=== PATIENT | female | born 1935 | race Caucasian/White ===

== ENCOUNTER 2017-12-01 10:46 | Outpatient (CLI) | payer MEDICARE | END 2017-12-01 10:47 | disposition home or self-care (01) | LOC: BICMAMMO 10:46 | PROVIDERS: ATTEND Obstetrics & Gynecology | DX: Z12.31 Encounter for screening mammogram for malignant neoplasm of breast (principal) | CPT/HCPCS: 77063; 77067 ==

== ENCOUNTER 2020-07-16 13:01 | Outpatient (CLI) | payer MEDICARE ==
--- NOTE | 2020-07-16 13:54 | RAD ---
PA AND LATERAL CHEST: 07/16/20 HISTORY: Dyspnea. COMPARISON: 04/23/13 exam. Heart size is within normal limits. There are atherosclerotic change of the aorta. Chronic appearing interstitial lung changes are seen. Bones are demineralized. There is compression changes of two of t he lower thoracic vertebral bodies, age indeterminate. Hiatal hernia is present. IMPRESSION: 1. Chronic lung change. 2. Age indeterminate compression changes of two of the lower thoracic vertebral bodies. 3. Hiatal hernia. POS: [facility]
== END 2020-07-16 13:02 | disposition home or self-care (01) ==
LOC: BICRAD 13:01
PROVIDERS: ATTEND Internal Medicine Pulmonary Disease
DX: R06.00 Dyspnea, unspecified (principal); K44.9 Diaphragmatic hernia without obstruction or gangrene
CPT/HCPCS: 71046

== ENCOUNTER 2020-10-06 13:12 | Outpatient (CLI) | payer MEDICARE | END 2020-10-06 13:13 | disposition home or self-care (01) | LOC: BICULT 13:12 | PROVIDERS: ATTEND Urology | DX: N35.82 Other urethral stricture, female (principal); R33.9 Retention of urine, unspecified; N28.9 Disorder of kidney and ureter, unspecified | CPT/HCPCS: 76770 ==

== ENCOUNTER 2021-08-05 10:30 | Outpatient (CLI) | payer MEDICARE ==
[~2021-08-05 10:30] MED LIST: Iopamidol-370 76% 500 ML 1 ML ONE
== END 2021-08-05 10:31 | disposition home or self-care (01) ==
LOC: BICCT 10:30
PROVIDERS: ATTEND Internal Medicine Critical Care Medicine
DX: R91.1 Solitary pulmonary nodule (principal); I25.10 Atherosclerotic heart disease of native coronary artery without angina pectoris; I70.0 Atherosclerosis of aorta; I71.4 Abdominal aortic aneurysm, without rupture; J47.9 Bronchiectasis, uncomplicated; R91.8 Other nonspecific abnormal finding of lung field
CPT/HCPCS: 71260; 82565

== ENCOUNTER 2021-10-23 20:29 | Inpatient (IN) | payer OTHER, MEDICARE ==
[2021-10-23] MEDS ORDERED: Fentanyl 100 MCG/2 ML VIAL ONE (21:05)
[2021-10-23 21:22] LABS: #Eosinphils 0.1 thou/uL (0.0-0.7); #Lymphocytes 1.1 thou/uL (1.20-3.40); #Monocytes 0.5 thou/uL (0.11-0.59); #Neutrophils 7.2 thou/uL (1.40-6.50); %Basophils 0.2 % (0.0-1.0); %Eosinophils 0.8 % (0.0-10.0); %Lymphocytes 12.2 % (21.0-51.0); %Monocytes 5.4 % (0.0-10.0); %Neutrophils 81.4 % (42.0-75.0); Hemoglobin 12.9 g/dL (12.0-16.0); Mean Corpuscular Hemoglobin 33.7 pg (27.0-31.0); Mean Corpuscular Volume 99.1 fL (78.0-98.0); Mean Platelet Volume 7.2 fL (7.4-10.4); Platelet Count 184 thou/uL (130-400); Red Blood Cell (RBC) Count 3.82 mill/uL (4.20-5.40); White Blood Cell (WBC) Count 8.8 thou/uL (4.8-10.8)
[2021-10-23 21:24] LABS: Prothrombin Time 13.7 sec (12.0-14.7)
[2021-10-23 21:37] LABS: ALT (SGPT) 9 U/L (8-55); AST (SGOT) 15 U/L (5-34); Albumin 3.8 g/dL (3.4-4.8); Alkaline Phosphatase 67 U/L (40-110); Anion Gap 15 mmol/L (10-20); BUN (Urea Nitrogen) 13 mg/dL (9.8-20.1); Bilirubin, Total 1.1 mg/dL (0.2-1.2); Calc. Creatinine Clearance 0 mL/min (70-130); Calcium 8.8 mg/dL (7.8-10.44); Carbon Dioxide 20 mmol/L (23-31); Chloride 103 mmol/L (98-107); Glucose 121 mg/dL (83-110); Potassium 3.5 mmol/L (3.5-5.1); Protein, Total 6.8 g/dL (5.8-8.1); Sodium 134 mmol/L (136-145)
[2021-10-23] MEDS ORDERED: Morphine 2 MG/ML VIAL SLOW IVP PRN (21:54)
[2021-10-23] MEDS ORDERED: Ondansetron PF 4 MG/2 ML Vial IVP PRN ×2 (21:54→22:00)
[2021-10-23] MEDS ORDERED: Promethazine HCl 25 MG/ML VIAL IM PRN (21:54)
[2021-10-23] MEDS ORDERED: hydrALAZINE 20 MG/ML VIAL SLOW IVP PRN (21:54)
[2021-10-23] MEDS ORDERED: Melatonin 3 MG TAB PO SCH (22:00)
[2021-10-23] MEDS ORDERED: Ondansetron ODT 4 MG TAB SL PRN (22:00)
[2021-10-23] MEDS ORDERED: Sodium Chloride 0.9% 1,000 ML IV SCH ×2 (22:00)
[2021-10-23] MEDS ORDERED: traMADol HCl 50 MG TAB PO PRN (22:11)
[2021-10-23] MEDS ORDERED: Cyclobenzaprine 10 MG TAB PO PRN (22:11)
[2021-10-23] MEDS ORDERED: Sodium Chloride 0.9% 500 ML IV SCH (22:15)
[2021-10-23] MEDS: Acetaminophen 500 MG TAB PO SCH (23:24)
[2021-10-23] MEDS: traMADol HCl 50 MG TAB PO SCH (23:24)
[2021-10-24 01:42] VITALS: BMI 21.1
[2021-10-24] MEDS: Sodium Chloride 0.9% 1,000 ML IV SCH ×2 (02:26→16:24)
[2021-10-24 05:25] LABS: #Lymphocytes 0.5 thou/uL (1.20-3.40); #Monocytes 0.8 thou/uL (0.11-0.59); %Eosinophils 0.1 % (0.0-10.0); %Lymphocytes 4.4 % (21.0-51.0); %Monocytes 8.1 % (0.0-10.0); %Neutrophils 87.4 % (42.0-75.0); Hemoglobin 10.6 g/dL (12.0-16.0); Mean Corpuscular Hemoglobin 34.7 pg (27.0-31.0); Mean Corpuscular Volume 99.1 fL (78.0-98.0); Mean Platelet Volume 7.5 fL (7.4-10.4); Platelet Count 151 thou/uL (130-400); RBC Distribution Width 11.7 % (11.5-14.5); Red Blood Cell (RBC) Count 3.07 mill/uL (4.20-5.40); White Blood Cell (WBC) Count 10.3 thou/uL (4.8-10.8)
[2021-10-24 05:37] LABS: Phosphorus 3.5 mg/dL (2.3-4.7)
[2021-10-24 05:40] LABS: Anion Gap 15 mmol/L (10-20); BUN (Urea Nitrogen) 22 mg/dL (9.8-20.1); Calc. Creatinine Clearance 31 mL/min (70-130); Calcium 8.1 mg/dL (7.8-10.44); Carbon Dioxide 20 mmol/L (23-31); Chloride 103 mmol/L (98-107); Glucose 137 mg/dL (83-110); Magnesium 1.7 mg/dL (1.6-2.6); Sodium 134 mmol/L (136-145)
[2021-10-24] MEDS: traMADol HCl 50 MG TAB PO SCH ×3 (06:04→21:15)
[2021-10-24] MEDS: Acetaminophen 500 MG TAB PO SCH ×4 (06:04→23:45)
[2021-10-24] MEDS ORDERED: Sodium Chloride 0.9% 1,000 ML IV SCH (06:30)
[2021-10-24] MEDS ORDERED: Magnesium Sulfate 3 GM in Sodium Chloride 0.9% 100 ML IVPB SCH (07:15)
[2021-10-24] MEDS ORDERED: ceFAZolin (BATCH) 2 GM in Premix Bag 1 BAG IVPB SCH (08:30)
[2021-10-24] MEDS: Famotidine/PF 20 mg/2ml Vial SLOW IVP SCH (08:42)
[2021-10-24] MEDS: Metoprolol Tartrate 25 MG TAB PO SCH ×2 (08:42→19:49)
[2021-10-24] MEDS: Senokot S 8.6-50 MG TAB PO SCH ×2 (10:07→21:15)
[2021-10-24] MEDS: Thiamine 100 MG TAB PO SCH (10:07)
[2021-10-24] MEDS: Polyethylene Glycol 3350 17 GM Packet PO SCH (10:07)
[2021-10-24] MEDS: Folic Acid 1 MG TAB PO SCH (10:07)
[2021-10-24] MEDS ORDERED: ceFAZolin (BATCH) 2 GM/100 ML BAG ONE (11:16)
[2021-10-24 12:11] LABS: SARS-CoV-2 NAA Rapid Test Not Detected (NotDetected)
[2021-10-24] MEDS ORDERED: fentaNYL Citrate/PF 100 MCG/2 ML SYRINGE ONE (12:16)
[2021-10-24] MEDS ORDERED: ePHEDrine 50 MG/ML VIAL ONE (12:50)
[2021-10-24] MEDS ORDERED: Lidocaine 1% PF 5 ML VIAL ONE (12:50)
[2021-10-24] MEDS ORDERED: Ondansetron PF 4 MG/2 ML Vial ONE (12:50)
[2021-10-24] MEDS ORDERED: PROPOFOL 200 MG/20 ML VIAL ONE (12:50)
[2021-10-24] MEDS ORDERED: PHENYLEPHRINE-NS 100 MCG/ML 10 ML SYRINGE ONE (12:50)
[2021-10-24] MEDS ORDERED: Ondansetron HCl/PF 4 MG/2 ML Vial IVP PRN (14:21)
[2021-10-24] MEDS ORDERED: Promethazine HCl 25 MG/ML VIAL IM PRN (14:21)
[2021-10-24] MEDS ORDERED: Promethazine HCl 25 MG/ML VIAL IVPB PRN (14:21)
[2021-10-24] MEDS ORDERED: traMADol HCl 50 MG TAB PO PRN (16:12)
[2021-10-24] MEDS ORDERED: Morphine 2 MG/ML VIAL SLOW IVP PRN (16:12)
[2021-10-24] MEDS ORDERED: Melatonin 3 MG TAB PO PRN (21:55)
[2021-10-25] MEDS: Acetaminophen 500 MG TAB PO SCH ×2 (05:55→20:20)
[2021-10-25 06:05] LABS: #Lymphocytes 1.2 thou/uL (1.20-3.40); #Monocytes 0.8 thou/uL (0.11-0.59); #Neutrophils 5.2 thou/uL (1.40-6.50); %Basophils 0.1 % (0.0-1.0); %Eosinophils 0.3 % (0.0-10.0); %Neutrophils 72.5 % (42.0-75.0); Hemoglobin 7.9 g/dL (12.0-16.0); Mean Corpuscular HGB CONC 34.1 g/dL (32.0-36.0); Mean Corpuscular Hemoglobin 35.2 pg (27.0-31.0); Mean Platelet Volume 8.2 fL (7.4-10.4); Platelet Count 143 thou/uL (130-400); RBC Distribution Width 12.5 % (11.5-14.5); Red Blood Cell (RBC) Count 2.25 mill/uL (4.20-5.40); White Blood Cell (WBC) Count 7.2 thou/uL (4.8-10.8)
[2021-10-25 06:32] LABS: Anion Gap 13 mmol/L (10-20); BUN (Urea Nitrogen) 35 mg/dL (9.8-20.1); Calc. Creatinine Clearance 26 mL/min (70-130); Calcium 7.7 mg/dL (7.8-10.44); Carbon Dioxide 19 mmol/L (23-31); Chloride 106 mmol/L (98-107); Glucose 133 mg/dL (83-110); Magnesium 2.4 mg/dL (1.6-2.6); Phosphorus 3.3 mg/dL (2.3-4.7); Potassium 4.4 mmol/L (3.5-5.1); Sodium 134 mmol/L (136-145)
[2021-10-25] MEDS ORDERED: Sodium Chloride 0.9% 1,000 ML IV SCH (07:30)
[2021-10-25] MEDS: Folic Acid 1 MG TAB PO SCH (08:15)
[2021-10-25] MEDS: Polyethylene Glycol 3350 17 GM Packet PO SCH (08:15)
[2021-10-25] MEDS: Senokot S 8.6-50 MG TAB PO SCH ×2 (08:15→20:09)
[2021-10-25] MEDS: Famotidine/PF 20 mg/2ml Vial SLOW IVP SCH (08:15)
[2021-10-25] MEDS: Thiamine 100 MG TAB PO SCH (08:15)
[2021-10-25] MEDS: Metoprolol Tartrate 25 MG TAB PO SCH ×2 (08:15→20:09)
[2021-10-25] MEDS: Aspirin 81 mg Enteric Coated Tablet PO SCH ×2 (08:15→20:09)
[2021-10-25] MEDS: traMADol HCl 50 MG TAB PO SCH (08:34)
[2021-10-25] MEDS ORDERED: Levothyroxine Sodium 75 MCG TAB PO SCH (09:00)
[2021-10-25] MEDS: Sodium Chloride 0.9% 1,000 ML IV SCH ×2 (09:45→20:10)
[2021-10-25] MEDS ORDERED: Acetaminophen/Codeine 30-300mg Tablet PO SCH (11:00)
[2021-10-25] MEDS ORDERED: Hydrocortisone Sod Succ/PF 100 mg/2 ml Vial IVP SCH (12:00)
[2021-10-25 12:52] LABS: Actual Bicarbonate (HCO3a) 21.1 mEq/L (22-28); Base Excess (BEa) -3.6 mEq/L (-2.0 to +3.0); CO2 Tension 36.2 mmHg (35.0-45.0); Calcium, Ionized (arterial) 1.08 mmol/L (1.12-1.30); Carboxyhemoglobin (COHb) 0.4 gm% (0.0-3.0); Hemoglobin (Hb) 6.4 g/dL (12.0-16.0); O2 Tension (PaO2), arterial 42.4 mmHg (> 60.0); Potassium - ABG Lab 4.13 mmol/L (3.70-5.30); pH, Arterial 7.38 (7.35-7.45)
[2021-10-25 12:53] LABS: Puncture Site RRA
[2021-10-25] MEDS ORDERED: Calcium Chloride 13.6 MEQ in Sodium Chloride 0.9% 100 ML IVPB SCH (15:00)
[2021-10-25] MEDS ORDERED: Piperacillin/Tazobactam 3.375 GM in Sodium Chloride 0.9% 100 ML IVPB SCH (17:15)
[2021-10-25] MEDS: Hydrocortisone Sod Succ/PF 100 mg/2 ml Vial IVP SCH (18:30)
[2021-10-25] MEDS ORDERED: Gabapentin 100 MG CAP PO SCH ×2 (21:00)
[2021-10-26] MEDS: Hydrocortisone Sod Succ/PF 100 mg/2 ml Vial IVP SCH (01:44)
[2021-10-26] MEDS: Acetaminophen 500 MG TAB PO SCH ×2 (02:49→14:01)
[2021-10-26 05:03] LABS: Anion Gap 13 mmol/L (10-20); BUN (Urea Nitrogen) 22 mg/dL (9.8-20.1); Calc. Creatinine Clearance 40 mL/min (70-130); Calcium 8.7 mg/dL (7.8-10.44); Carbon Dioxide 18 mmol/L (23-31); Chloride 107 mmol/L (98-107); Glucose 184 mg/dL (83-110); Magnesium 2.1 mg/dL (1.6-2.6); Phosphorus 1.7 mg/dL (2.3-4.7); Potassium 4.1 mmol/L (3.5-5.1); Sodium 134 mmol/L (136-145)
[2021-10-26 05:41] LABS: #Lymphocytes 0.4 thou/uL (1.20-3.40); #Monocytes 0.5 thou/uL (0.11-0.59); #Neutrophils 7.2 thou/uL (1.40-6.50); %Basophils 0.1 % (0.0-1.0); %Eosinophils 0.1 % (0.0-10.0); %Lymphocytes 4.6 % (21.0-51.0); %Monocytes 6.4 % (0.0-10.0); %Neutrophils 88.8 % (42.0-75.0); Hemoglobin 9.8 g/dL (12.0-16.0); Mean Corpuscular HGB CONC 34.3 g/dL (32.0-36.0); Mean Corpuscular Hemoglobin 33.1 pg (27.0-31.0); Mean Corpuscular Volume 96.5 fL (78.0-98.0); Mean Platelet Volume 8.1 fL (7.4-10.4); Platelet Count 112 thou/uL (130-400); Platelet Morphology Comment Appears Decreased; RBC Distribution Width 14.4 % (11.5-14.5); RBC Morphology Normal; Red Blood Cell (RBC) Count 2.95 mill/uL (4.20-5.40); White Blood Cell (WBC) Count 8.2 thou/uL (4.8-10.8)
[2021-10-26] MEDS: Levothyroxine Sodium 75 MCG TAB PO SCH (05:42)
[2021-10-26] MEDS: Senokot S 8.6-50 MG TAB PO SCH ×3 (07:40→20:54)
[2021-10-26] MEDS: Metoprolol Tartrate 25 MG TAB PO SCH ×2 (07:40→20:54)
[2021-10-26] MEDS: Famotidine/PF 20 mg/2ml Vial SLOW IVP SCH (07:40)
[2021-10-26] MEDS: Aspirin 81 mg Enteric Coated Tablet PO SCH ×2 (07:40→20:53)
[2021-10-26] MEDS: Polyethylene Glycol 3350 17 GM Packet PO SCH (07:40)
[2021-10-26] MEDS: Acetaminophen/Codeine 30-300mg Tablet PO SCH ×3 (08:19→20:52)
[2021-10-26] MEDS ORDERED: Potassium Phosphate 30 MMOL in Sodium Chloride 0.9% 250 ML 250 ML IVPB SCH (14:15)
[2021-10-26] MEDS: Ibuprofen 200 MG TAB PO SCH ×2 (14:47→20:51)
[2021-10-26] MEDS: Piperacillin/Tazobactam 3.375 GM in Sodium Chloride 0.9% 100 ML IVPB SCH ×2 (14:48→22:34)
[2021-10-27] MEDS: Ibuprofen 200 MG TAB PO SCH ×5 (02:30→21:27)
[2021-10-27] MEDS: Acetaminophen/Codeine 30-300mg Tablet PO SCH ×5 (02:30→21:28)
[2021-10-27] MEDS: Levothyroxine Sodium 75 MCG TAB PO SCH (06:17)
[2021-10-27] MEDS: Piperacillin/Tazobactam 3.375 GM in Sodium Chloride 0.9% 100 ML IVPB SCH (06:17)
[2021-10-27] MEDS: Senokot S 8.6-50 MG TAB PO SCH ×2 (07:33→21:28)
[2021-10-27] MEDS: Polyethylene Glycol 3350 17 GM Packet PO SCH (07:44)
[2021-10-27] MEDS: Cholecalciferol 1,000 UNITS (25 MCG) TAB PO SCH (08:07)
[2021-10-27] MEDS: Famotidine/PF 20 mg/2ml Vial SLOW IVP SCH (08:07)
[2021-10-27] MEDS: Aspirin 81 mg Enteric Coated Tablet PO SCH ×2 (08:07→21:27)
[2021-10-27] MEDS: Metoprolol Tartrate 25 MG TAB PO SCH ×2 (08:08→22:53)
[2021-10-27] MEDS ORDERED: Cholecalciferol 1,000 UNITS (25 MCG) TAB PO SCH (09:00)
[2021-10-27] MEDS: Cefdinir 300 MG CAP PO SCH ×2 (11:50→21:27)
[2021-10-27] MEDS ORDERED: Clopidogrel Bisulfate 75 MG TAB PO SCH (21:00)
[2021-10-27] MEDS: Clopidogrel Bisulfate 75 MG TAB PO SCH (21:29)
[2021-10-27] MEDS: Amlodipine 10 MG TAB PO SCH (21:30)
[2021-10-28] MEDS: Ibuprofen 200 MG TAB PO SCH ×4 (02:00→21:39)
[2021-10-28] MEDS: Acetaminophen/Codeine 30-300mg Tablet PO SCH ×4 (02:00→21:40)
[2021-10-28] MEDS: Levothyroxine Sodium 75 MCG TAB PO SCH (05:21)
[2021-10-28 06:15] LABS: #Eosinphils 0.2 thou/uL (0.0-0.7); #Lymphocytes 1.1 thou/uL (1.20-3.40); #Monocytes 0.6 thou/uL (0.11-0.59); #Neutrophils 3.7 thou/uL (1.40-6.50); %Basophils 0.2 % (0.0-1.0); %Eosinophils 3.5 % (0.0-10.0); %Lymphocytes 19.7 % (21.0-51.0); %Monocytes 11.2 % (0.0-10.0); %Neutrophils 65.5 % (42.0-75.0); Mean Corpuscular Hemoglobin 33.9 pg (27.0-31.0); Mean Corpuscular Volume 99.5 fL (78.0-98.0); Platelet Count 130 thou/uL (130-400); RBC Distribution Width 14.7 % (11.5-14.5); Red Blood Cell (RBC) Count 2.67 mill/uL (4.20-5.40); White Blood Cell (WBC) Count 5.7 thou/uL (4.8-10.8)
[2021-10-28 06:54] LABS: Calcium 8.4 mg/dL (7.8-10.44); Chloride 106 mmol/L (98-107); Glucose 94 mg/dL (83-110); Potassium 4.1 mmol/L (3.5-5.1); Sodium 136 mmol/L (136-145)
[2021-10-28 06:56] LABS: Carbon Dioxide 25 mmol/L (23-31)
[2021-10-28 06:58] LABS: Calc. Creatinine Clearance 47 mL/min (70-130); Phosphorus 3.5 mg/dL (2.3-4.7)
[2021-10-28 06:59] LABS: BUN (Urea Nitrogen) 22 mg/dL (9.8-20.1)
[2021-10-28 07:00] LABS: Magnesium 1.9 mg/dL (1.6-2.6)
[2021-10-28 07:14] LABS: Anion Gap 11 mmol/L (10-20)
[2021-10-28] MEDS: Metoprolol Tartrate 25 MG TAB PO SCH ×2 (07:55→21:41)
[2021-10-28] MEDS: Polyethylene Glycol 3350 17 GM Packet PO SCH (08:03)
[2021-10-28] MEDS: Aspirin 81 mg Enteric Coated Tablet PO SCH ×2 (08:04→21:39)
[2021-10-28] MEDS: Famotidine/PF 20 mg/2ml Vial SLOW IVP SCH ×2 (08:04→08:12)
[2021-10-28] MEDS: Cefdinir 300 MG CAP PO SCH ×2 (08:04→21:40)
[2021-10-28] MEDS: Cholecalciferol 1,000 UNITS (25 MCG) TAB PO SCH (08:04)
[2021-10-28] MEDS: Senokot S 8.6-50 MG TAB PO SCH ×2 (08:07→21:41)
[2021-10-28] MEDS ORDERED: Calcium Carbonate 500 MG ChewTAB PO PRN (13:31)
[2021-10-28] MEDS: Ondansetron ODT 4 MG TAB PO PRN ×2 (16:08→22:37)
[2021-10-28] MEDS: Amlodipine 10 MG TAB PO SCH (21:40)
[2021-10-28] MEDS: Clopidogrel Bisulfate 75 MG TAB PO SCH (21:41)
[2021-10-29] MEDS: Acetaminophen/Codeine 30-300mg Tablet PO SCH ×4 (03:21→16:39)
[2021-10-29] MEDS: Ibuprofen 200 MG TAB PO SCH ×3 (03:22→16:39)
[2021-10-29] MEDS: Levothyroxine Sodium 75 MCG TAB PO SCH (06:34)
[2021-10-29] MEDS: Cholecalciferol 1,000 UNITS (25 MCG) TAB PO SCH (08:04)
[2021-10-29] MEDS: Metoprolol Tartrate 25 MG TAB PO SCH (08:04)
[2021-10-29] MEDS: Senokot S 8.6-50 MG TAB PO SCH (08:04)
[2021-10-29] MEDS: Cefdinir 300 MG CAP PO SCH (08:04)
[2021-10-29] MEDS: Aspirin 81 mg Enteric Coated Tablet PO SCH (08:05)
[2021-10-29] MEDS: Famotidine/PF 20 mg/2ml Vial SLOW IVP SCH (08:05)
[2021-10-29] MEDS: Ondansetron ODT 4 MG TAB PO PRN (08:09)
[2021-10-29] MEDS: Polyethylene Glycol 3350 17 GM Packet PO SCH (08:45)
[2021-10-29] MEDS ORDERED: Famotidine 20 MG TAB PO SCH (09:00)
[2021-10-29 12:31] VITALS: BP 136/71; TEMP 98.2
[2021-10-31] MEDS ORDERED: Alendronate Sodium 70 mg Tablet PO SCH (09:00)
== END 2021-10-29 16:50 | DRG 480 ==
LOC: ERS 20:29 → SURG B 21:54 → IMCU/EMU 10-25 19:40 → SURG A 10-28 00:15
PROVIDERS: ADMIT Specialist; ATTEND Surgery
PROC: 0QS706Z Reposition Left Upper Femur with Intramedullary Internal Fixation Device, Open Approach (ICD-10-PCS; principal; 2021-10-24)
DX: S72.352A Displaced comminuted fracture of shaft of left femur, initial encounter for closed fracture (principal); Z20.822 Contact with and (suspected) exposure to COVID-19; J69.0 Pneumonitis due to inhalation of food and vomit; D62 Acute posthemorrhagic anemia; N17.9 Acute kidney failure, unspecified; J44.1 Chronic obstructive pulmonary disease with (acute) exacerbation; E83.39 Other disorders of phosphorus metabolism; S72.22XA Displaced subtrochanteric fracture of left femur, initial encounter for closed fracture; S72.122A Displaced fracture of lesser trochanter of left femur, initial encounter for closed fracture; I10 Essential (primary) hypertension; E03.9 Hypothyroidism, unspecified; F17.210 Nicotine dependence, cigarettes, uncomplicated; W01.0XXA Fall on same level from slipping, tripping and stumbling without subsequent striking against object, initial encounter; Z86.73 Personal history of transient ischemic attack (TIA), and cerebral infarction without residual deficits; Z90.89 Acquired absence of other organs; Z95.5 Presence of coronary angioplasty implant and graft; Y92.008 Other place in unspecified non-institutional (private) residence as the place of occurrence of the external cause; Z79.899 Other long term (current) drug therapy; Z79.82 Long term (current) use of aspirin; Z79.02 Long term (current) use of antithrombotics/antiplatelets; Z79.890 Hormone replacement therapy
CPT/HCPCS: 36415; 36430; 36600; 71045; 72170; 76000; 80048; 80053; 82533; 82805; 83735; 83880; 84100; 85025; 85610; 85730; 86850; 86900; 86901; 93005; 93010; 94640; 96374; C1713; J0690; J1720; J2270; J2405; J2543; J2704; J3010; J3475; J3490; J7030; J7050; J7620; P9016; P9045; Q0162; S0028; U0002

== ENCOUNTER 2022-08-05 12:59 | Outpatient (CLI) | payer MEDICARE | END 2022-08-05 13:00 | disposition home or self-care (01) | LOC: CT 12:59 | PROVIDERS: ATTEND Internal Medicine Critical Care Medicine | DX: R91.8 Other nonspecific abnormal finding of lung field (principal); I71.40 Abdominal aortic aneurysm, without rupture, unspecified; J47.9 Bronchiectasis, uncomplicated; J43.9 Emphysema, unspecified | CPT/HCPCS: 71250 ==

== ENCOUNTER 2022-09-28 15:06 | Inpatient (IN) | payer MEDICARE ==
[2022-09-28 16:06] LABS: #Lymphocytes 0.5 thou/uL (1.20-3.40); #Monocytes 0.4 thou/uL (0.11-0.59); #Neutrophils 4.4 thou/uL (1.40-6.50); %Eosinophils 0.4 % (0.0-10.0); %Lymphocytes 8.8 % (21.0-51.0); %Neutrophils 82.9 % (42.0-75.0); Hemoglobin 12.1 g/dL (12.0-16.0); Mean Corpuscular HGB CONC 31.8 g/dL (32.0-36.0); Mean Corpuscular Hemoglobin 28.9 pg (27.0-31.0); Mean Corpuscular Volume 90.9 fl (78.0-98.0); Mean Platelet Volume 8.7 fL (7.4-10.4); Platelet Count 183 10x3/uL (130-400); RBC Distribution Width 14.2 % (11.5-14.5); Red Blood Cell (RBC) Count 4.19 mill/uL (4.20-5.40); White Blood Cell (WBC) Count 5.4 10x3/uL (4.8-10.8)
[2022-09-28 16:34] LABS: ALT (SGPT) Less than 7 U/L (8-55); AST (SGOT) 16 U/L (5-34); Albumin 4.1 g/dL (3.4-4.8); Alkaline Phosphatase 71 U/L (40-110); Anion Gap 17 mmol/L (10-20); BUN (Urea Nitrogen) 20 mg/dL (9.8-20.1); Bilirubin, Total 0.4 mg/dL (0.2-1.2); Calc. Creatinine Clearance 0 mL/min (70-130); Calcium 9.4 mg/dL (7.8-10.44); Carbon Dioxide 16 mmol/L (23-31); Chloride 104 mmol/L (98-107); Estimated GFR 63; Globulin 3.6 g/dL (2.4-3.5); Potassium 3.4 mmol/L (3.5-5.1); Protein, Total 7.7 g/dL (5.8-8.1); Sodium 134 mmol/L (136-145)
[2022-09-28 16:36] LABS: Glucose 34 mg/dL (83-110)
[2022-09-28] MEDS ORDERED: Vancomycin 1 GM/200 ML (FROZEN) BAG ONE (17:25)
[2022-09-28] MEDS ORDERED: Piperacillin/Tazobactam 3.375 GM VIAL ONE (17:25)
[2022-09-28 17:48] LABS: Bilirubin Negative (Negative); Blood, Urine Negative (Negative); Clarity Clear (Clear); Glucose, Urine (Dipstick) Normal (Negative); Ketone, Urine Negative (Negative); Leukocyte Negative Leu/uL (Negative); Nitrite Negative (Negative); Protein, Urine (Dipstick) Negative (Neg-Trace); Specific Gravity, Urine 1.018 (1.002-1.036); Urobilinogen Normal mg/dL (Less than 2)
[2022-09-28 19:08] LABS: Lactic Acid 1.9 mmol/L (0.5-2.2)
[2022-09-28] MEDS ORDERED: Acetaminophen 325 MG TAB PO PRN (19:27)
[2022-09-28] MEDS ORDERED: Dextrose 5% in Water 1,000 ML IV PRN (19:30)
[2022-09-28] MEDS ORDERED: Dextrose 50% Abboject 50 ML SYRINGE SLOW IVP PRN (19:30)
[2022-09-28] MEDS ORDERED: Simvastatin 5 MG TAB PO SCH (21:00)
[2022-09-28] MEDS ORDERED: Dextrose 50% Abboject 50 ML SYRINGE ONE (22:08)
[2022-09-28] MEDS: Dextrose 10% in Water 1,000 ML IV SCH (22:41)
[2022-09-28 23:09] VITALS: BMI 18.6
[2022-09-28] MEDS: Metoprolol Tartrate 25 MG TAB PO SCH (23:17)
[2022-09-28] MEDS: Clopidogrel Bisulfate 75 MG TAB PO SCH (23:17)
[2022-09-29 04:58] LABS: #Lymphocytes 0.9 thou/uL (1.20-3.40); #Monocytes 0.6 thou/uL (0.11-0.59); #Neutrophils 3.6 thou/uL (1.40-6.50); %Basophils 0.2 % (0.0-1.0); %Eosinophils 0.9 % (0.0-10.0); %Lymphocytes 17.8 % (21.0-51.0); %Monocytes 10.6 % (0.0-10.0); %Neutrophils 70.4 % (42.0-75.0); Hemoglobin 10.4 g/dL (12.0-16.0); Mean Corpuscular Hemoglobin 29.6 pg (27.0-31.0); Mean Corpuscular Volume 89.5 fl (78.0-98.0); Mean Platelet Volume 10.4 fL (7.4-10.4); Platelet Count 44 10x3/uL (130-400); RBC Distribution Width 14.4 % (11.5-14.5); Red Blood Cell (RBC) Count 3.53 mill/uL (4.20-5.40); White Blood Cell (WBC) Count 5.2 10x3/uL (4.8-10.8)
[2022-09-29 05:06] LABS: Anion Gap 11 mmol/L (10-20); BUN (Urea Nitrogen) 17 mg/dL (9.8-20.1); Calc. Creatinine Clearance 35 mL/min (70-130); Calcium 8.6 mg/dL (7.8-10.44); Carbon Dioxide 23 mmol/L (23-31); Chloride 108 mmol/L (98-107); Estimated GFR 63; Potassium 3.9 mmol/L (3.5-5.1); Sodium 138 mmol/L (136-145)
[2022-09-29 05:10] LABS: Glucose 21 mg/dL (83-110)
[2022-09-29] MEDS: Levothyroxine Sodium 75 MCG TAB PO SCH (06:12)
[2022-09-29] MEDS ORDERED: Amlodipine 5 MG TAB PO SCH (09:00)
[2022-09-29] MEDS: Metoprolol Tartrate 25 MG TAB PO SCH (09:21)
[2022-09-29] MEDS: Dextrose 10% in Water 1,000 ML IV SCH (09:22)
[2022-09-29] MEDS ORDERED: Melatonin 3 MG TAB PO PRN (14:49)
[2022-09-29] MEDS: Atorvastatin Calcium 10 MG TAB PO SCH (21:21)
[2022-09-29] MEDS: Clopidogrel Bisulfate 75 MG TAB PO SCH (21:21)
[2022-09-29] MEDS: Senokot S 8.6-50 MG TAB PO SCH (21:25)
[2022-09-30] MEDS: Dextrose 10% in Water 1,000 ML IV SCH (04:13)
[2022-09-30] MEDS: Levothyroxine Sodium 75 MCG TAB PO SCH (05:44)
[2022-09-30 08:12] LABS: #Eosinphils 0.1 thou/uL (0.0-0.7); #Lymphocytes 1.2 thou/uL (1.20-3.40); #Monocytes 0.5 thou/uL (0.11-0.59); #Neutrophils 2.8 thou/uL (1.40-6.50); %Basophils 0.7 % (0.0-1.0); %Eosinophils 2.9 % (0.0-10.0); %Lymphocytes 25.6 % (21.0-51.0); %Monocytes 11.7 % (0.0-10.0); %Neutrophils 59.1 % (42.0-75.0); Hemoglobin 10.8 g/dL (12.0-16.0); Mean Corpuscular HGB CONC 31.8 g/dL (32.0-36.0); Mean Corpuscular Hemoglobin 28.4 pg (27.0-31.0); Mean Corpuscular Volume 89.5 fl (78.0-98.0); Mean Platelet Volume 8.1 fL (7.4-10.4); Platelet Count 220 10x3/uL (130-400); RBC Distribution Width 14.5 % (11.5-14.5); White Blood Cell (WBC) Count 4.7 10x3/uL (4.8-10.8)
[2022-09-30 08:33] LABS: Anion Gap 12 mmol/L (10-20); BUN (Urea Nitrogen) 9 mg/dL (9.8-20.1); Calc. Creatinine Clearance 34 mL/min (70-130); Calcium 9.1 mg/dL (7.8-10.44); Carbon Dioxide 24 mmol/L (23-31); Chloride 103 mmol/L (98-107); Estimated GFR 54; Glucose 141 mg/dL (83-110); Potassium 3.8 mmol/L (3.5-5.1); Sodium 135 mmol/L (136-145)
[2022-09-30] MEDS: Cholecalciferol 1,000 UNITS (25 MCG) TAB PO SCH (09:12)
[2022-09-30] MEDS: Famotidine 20 MG TAB PO SCH (09:12)
[2022-09-30] MEDS: Aspirin 81 mg Enteric Coated Tablet PO SCH (09:12)
[2022-09-30] MEDS: Senokot S 8.6-50 MG TAB PO SCH ×2 (09:14→21:00)
[2022-09-30] MEDS: Cefdinir 300 MG CAP PO SCH (20:59)
[2022-09-30] MEDS: Atorvastatin Calcium 10 MG TAB PO SCH (20:59)
[2022-09-30] MEDS: Clopidogrel Bisulfate 75 MG TAB PO SCH (20:59)
[2022-09-30] MEDS ORDERED: Amlodipine 10 MG TAB PO SCH (21:00)
[2022-10-01 05:50] LABS: Hemoglobin 10.2 g/dL (12.0-16.0); Mean Corpuscular HGB CONC 32.8 g/dL (32.0-36.0); Mean Corpuscular Hemoglobin 28.8 pg (27.0-31.0); Mean Corpuscular Volume 87.9 fl (78.0-98.0); RBC Distribution Width 14.3 % (11.5-14.5); Red Blood Cell (RBC) Count 3.52 mill/uL (4.20-5.40); White Blood Cell (WBC) Count 4.2 10x3/uL (4.8-10.8)
[2022-10-01] MEDS: Levothyroxine Sodium 75 MCG TAB PO SCH (06:07)
[2022-10-01 06:23] LABS: Anion Gap 13 mmol/L (10-20); BUN (Urea Nitrogen) 9 mg/dL (9.8-20.1); Calc. Creatinine Clearance 32 mL/min (70-130); Calcium 9.2 mg/dL (7.8-10.44); Carbon Dioxide 23 mmol/L (23-31); Chloride 106 mmol/L (98-107); Estimated GFR 54; Glucose 96 mg/dL (83-110); Potassium 3.8 mmol/L (3.5-5.1); Sodium 138 mmol/L (136-145)
[2022-10-01] MEDS: Senokot S 8.6-50 MG TAB PO SCH (09:21)
[2022-10-01] MEDS: Cholecalciferol 1,000 UNITS (25 MCG) TAB PO SCH (09:22)
[2022-10-01] MEDS: Cefdinir 300 MG CAP PO SCH (09:22)
[2022-10-01] MEDS: Aspirin 81 mg Enteric Coated Tablet PO SCH (09:22)
[2022-10-01 10:52] LABS: #Eosinphils 0.1 thou/uL (0.0-0.7); #Lymphocytes 1.3 thou/uL (1.20-3.40); #Monocytes 0.5 thou/uL (0.11-0.59); #Neutrophils 2.3 thou/uL (1.40-6.50); %Eosinophils 3.2 % (0.0-10.0); %Lymphocytes 31.2 % (21.0-51.0); %Monocytes 11.6 % (0.0-10.0); MDiff Complete? YES; Mean Platelet Volume 10.4 fL (7.4-10.4); Platelet Clumps MODERATE; Platelet Count 189 10x3/uL (130-400)
[2022-10-01] MEDS: Famotidine 20 MG TAB PO SCH (11:04)
[2022-10-01 16:40] VITALS: BP 118/61; TEMP 97.8
== END 2022-10-01 18:09 | disposition home or self-care (01) | DRG 917 ==
LOC: ERS 15:06 → SUATTDRO 15:06 → ERHOLD 18:51 → 2NO 22:52
PROVIDERS: ADMIT Internal Medicine; ATTEND Internal Medicine
DX: T38.3X1A Poisoning by insulin and oral hypoglycemic [antidiabetic] drugs, accidental (unintentional), initial encounter (principal); A41.9 Sepsis, unspecified organism; N39.0 Urinary tract infection, site not specified; Z16.11 Resistance to penicillins; E87.20 Acidosis, unspecified; E16.1 Other hypoglycemia; B96.20 Unspecified Escherichia coli [E. coli] as the cause of diseases classified elsewhere; E03.9 Hypothyroidism, unspecified; F17.210 Nicotine dependence, cigarettes, uncomplicated; F17.290 Nicotine dependence, other tobacco product, uncomplicated; I10 Essential (primary) hypertension; G47.00 Insomnia, unspecified; Z91.018 Allergy to other foods; Z79.890 Hormone replacement therapy; Z79.82 Long term (current) use of aspirin; Z79.02 Long term (current) use of antithrombotics/antiplatelets; I25.2 Old myocardial infarction; Z85.828 Personal history of other malignant neoplasm of skin; Z86.73 Personal history of transient ischemic attack (TIA), and cerebral infarction without residual deficits; Z90.89 Acquired absence of other organs; Z95.828 Presence of other vascular implants and grafts
CPT/HCPCS: 36415; 36416; 51701; 80048; 80053; 81003; 83605; 83880; 84145; 84484; 85025; 87077; 87086; 87186; 93005; 96365; 96367; J1611; J1650; J2543; J3370-JW; J7999

== ENCOUNTER 2023-05-18 06:35 | Inpatient (IN) | payer MEDICARE ==
[2023-05-18] MEDS ORDERED: Glucagon 1 MG/ML KIT IM PRN (12:35)
[2023-05-18] MEDS ORDERED: Dextrose 50% Abboject 50 ML SYRINGE SLOW IVP PRN (12:35)
[2023-05-18] MEDS ORDERED: Dextrose 5% in Water 1,000 ML IV PRN (12:35)
[2023-05-18] MEDS ORDERED: Acetaminophen 325 MG TAB PO PRN (12:36)
[2023-05-18] MEDS ORDERED: Ondansetron ODT 4 MG TAB PO PRN (12:36)
[2023-05-18] MEDS ORDERED: Calcium Carbonate 500 MG ChewTAB PO PRN (12:36)
[2023-05-18] MEDS ORDERED: Ondansetron PF 4 MG/2 ML Vial IVP PRN (12:36)
[2023-05-18] MEDS ORDERED: Folic Acid 1 MG TAB PO SCH (12:45)
[2023-05-18] MEDS ORDERED: Dextrose 10% in Water 1,000 ML IV SCH (12:45)
[2023-05-18] MEDS ORDERED: Thiamine 100 MG TAB PO SCH (12:45)
[2023-05-18 12:57] VITALS: BMI 18.6
[2023-05-18] MEDS ORDERED: Cyanocobalamin (Vitamin B-12) 1,000 MCG TAB PO SCH ×2 (13:00→21:00)
[2023-05-18] MEDS ORDERED: Cholecalciferol 1,000 UNITS (25 MCG) TAB PO SCH (13:00)
[2023-05-18] MEDS ORDERED: Amlodipine 5 MG TAB PO PRN (13:39)
[2023-05-18] MEDS ORDERED: WATER IV SCH (14:00)
[2023-05-18] MEDS ORDERED: POTASSIUM PHOSPHATE IV SCH (14:00)
[2023-05-18] MEDS ORDERED: DEXTROSE 10% IV SCH (14:00)
[2023-05-18 14:55] LABS: Magnesium 2.5 mg/dL (1.6-2.6)
[2023-05-18 16:45] LABS: Troponin I 0.015 ng/mL (< 0.028)
[2023-05-18 18:17] LABS: Troponin I 0.017 ng/mL (< 0.028)
[2023-05-18 18:28] LABS: Glucose POC Confirmation 74 mg/dL (83-110)
[2023-05-18] MEDS ORDERED: Clopidogrel Bisulfate 75 MG TAB PO SCH (21:00)
[2023-05-18] MEDS ORDERED: Heparin 5,000 UNITS/ML VIAL SC SCH (21:00)
[2023-05-18] MEDS: Multivit, Therapeutic 1 TAB PO SCH (22:36)
[2023-05-18] MEDS: Senokot S 8.6-50 MG TAB PO SCH (22:37)
[2023-05-18] MEDS: Famotidine 20 MG TAB PO SCH (22:37)
[2023-05-18 23:30] LABS: Glucose 33 mg/dL (83-110)
[2023-05-19 01:10] LABS: Glucose 56 mg/dL (83-110)
[2023-05-19] MEDS ORDERED: DEXTROSE 10% IV SCH (03:10)
[2023-05-19] MEDS ORDERED: POTASSIUM PHOSPHATE IV SCH (03:10)
[2023-05-19] MEDS ORDERED: WATER IV SCH (03:10)
[2023-05-19] MEDS: cefTRIAXone\\ROCEPHIN 1 GM in Sodium Chloride 0.9% 100 ML IVPB SCH (03:20)
[2023-05-19 04:31] LABS: Glucose 71 mg/dL (83-110)
[2023-05-19 05:11] LABS: #Eosinphils 0.1 thou/uL (0.0-0.7); #Monocytes 0.8 thou/uL (0.11-0.59); %Basophils 0.2 % (0.0-1.0); %Eosinophils 2.2 % (0.0-10.0); %Lymphocytes 27.6 % (21.0-51.0); %Monocytes 14.1 % (0.0-10.0); %Neutrophils 55.7 % (42.0-75.0); Hematocrit 21.6 % (36.0-47.0); Hemoglobin 6.4 g/dL (12.0-16.0); Mean Corpuscular HGB CONC 29.6 g/dL (32.0-36.0); Mean Corpuscular Hemoglobin 21.9 pg (27.0-31.0); Mean Platelet Volume 10.2 fL (7.4-10.4); Platelet Count 190 10x3/uL (130-400); RBC Distribution Width 18.6 % (11.5-14.5); Red Blood Cell (RBC) Count 2.92 mill/uL (4.20-5.40); White Blood Cell (WBC) Count 5.4 10x3/uL (4.8-10.8)
[2023-05-19 06:00] LABS: Anisocytosis SLIGHT = 6-15 cells HPF (0-5); CellaVision Operator ID lab.abc; Hypochromia SLIGHT = 6-15 cells HPF (0-5); Large Platelets 7.1 % (0-5); Microcytosis SLIGHT = 6-15 cells HPF (0-5); Platelet Adequacy Comment Platelets Normal; Polychromasia SLIGHT = 2-3 cells HPF (0-2); Smudge Cells 15.2 %
[2023-05-19 07:03] LABS: ALT (SGPT) 10 U/L (8-55); AST (SGOT) 18 U/L (5-34); Albumin 3.2 g/dL (3.4-4.8); Alkaline Phosphatase 51 U/L (40-110); Anion Gap 14 mmol/L (10-20); BUN (Urea Nitrogen) 13 mg/dL (9.8-20.1); Bilirubin, Total 0.4 mg/dL (0.2-1.2); Calc. Creatinine Clearance 29 mL/min (70-130); Calcium 8.5 mg/dL (7.8-10.44); Carbon Dioxide 20 mmol/L (23-31); Chloride 108 mmol/L (98-107); Estimated GFR 50; Glucose 67 mg/dL (83-110); Potassium 3.8 mmol/L (3.5-5.1); Protein, Total 6.2 g/dL (5.8-8.1); Sodium 138 mmol/L (136-145)
[2023-05-19] MEDS: Levothyroxine Sodium 75 MCG TAB PO SCH (07:15)
[2023-05-19] MEDS ORDERED: Aspirin 81 mg Enteric Coated Tablet PO SCH (09:00)
[2023-05-19] MEDS ORDERED: Cholecalciferol 1,000 UNITS (25 MCG) TAB PO SCH (09:00)
[2023-05-19] MEDS: Senokot S 8.6-50 MG TAB PO SCH ×2 (09:35→20:47)
[2023-05-19] MEDS: Cholecalciferol 1,000 UNITS (25 MCG) TAB PO SCH (09:36)
[2023-05-19] MEDS: Metoprolol Tartrate 25 MG TAB PO SCH (09:36)
[2023-05-19] MEDS: Famotidine 20 MG TAB PO SCH ×3 (09:36→20:47)
[2023-05-19] MEDS: Cyanocobalamin (Vitamin B-12) 1,000 MCG TAB PO SCH (09:36)
[2023-05-19] MEDS: Folic Acid 1 MG TAB PO SCH (09:36)
[2023-05-19] MEDS: Thiamine 100 MG TAB PO SCH (09:36)
[2023-05-19 14:04] LABS: Iron 113 ug/dL (50-170); Iron Binding Capacity, Total 371 mcg/dL (265-497)
[2023-05-19 15:56] LABS: Bacteria/HPF None Seen HPF (None Seen); Bilirubin Negative (Negative); Blood, Urine Negative (Negative); CAUTI Indications for Culture Fever or rigors; Clarity Clear (Clear); Glucose, Urine (Dipstick) Normal (Negative); Ketone, Urine Negative (Negative); Leukocyte Negative Leu/uL (Negative); Nitrite Negative (Negative); Protein, Urine (Dipstick) Negative (Neg-Trace); RBC/HPF 0-3 HPF (0-3); Squamous Epithelial None Seen HPF (0-3); Urobilinogen Normal mg/dL (Less than 2); WBC/HPF 0-3 HPF (0-3); pH, Urine 5.5 (5.0-9.0)
[2023-05-19 16:06] LABS: Specific Gravity, Urine 1.004 (1.002-1.036)
[2023-05-19 16:08] LABS: Urine Culture Reflex No No
[2023-05-19] MEDS: Multivit, Therapeutic 1 TAB PO SCH (20:47)
[2023-05-20] MEDS: cefTRIAXone\\ROCEPHIN 1 GM in Sodium Chloride 0.9% 100 ML IVPB SCH (03:49)
[2023-05-20] MEDS: Levothyroxine Sodium 75 MCG TAB PO SCH (06:06)
[2023-05-20] MEDS: Folic Acid 1 MG TAB PO SCH (08:42)
[2023-05-20] MEDS: Thiamine 100 MG TAB PO SCH (08:42)
[2023-05-20] MEDS: Senokot S 8.6-50 MG TAB PO SCH (08:42)
[2023-05-20] MEDS: Cyanocobalamin (Vitamin B-12) 1,000 MCG TAB PO SCH (08:42)
[2023-05-20] MEDS: Cholecalciferol 1,000 UNITS (25 MCG) TAB PO SCH (08:42)
[2023-05-20] MEDS: Metoprolol Tartrate 25 MG TAB PO SCH (08:42)
[2023-05-20 10:02] LABS: #Eosinphils 0.2 thou/uL (0.0-0.7); #Monocytes 0.7 thou/uL (0.11-0.59); #Neutrophils 3.1 thou/uL (1.40-6.50); %Basophils 0.2 % (0.0-1.0); %Eosinophils 3.5 % (0.0-10.0); %Lymphocytes 14.8 % (21.0-51.0); %Monocytes 14.2 % (0.0-10.0); %Neutrophils 66.9 % (42.0-75.0); Hematocrit 26.7 % (36.0-47.0); Hemoglobin 8.3 g/dL (12.0-16.0); Mean Corpuscular HGB CONC 31.1 g/dL (32.0-36.0); Mean Corpuscular Hemoglobin 23.9 pg (27.0-31.0); Mean Corpuscular Volume 76.7 fl (78.0-98.0); Mean Platelet Volume 9.8 fL (7.4-10.4); Platelet Count 225 10x3/uL (130-400); RBC Distribution Width 19.9 % (11.5-14.5); Red Blood Cell (RBC) Count 3.48 mill/uL (4.20-5.40); White Blood Cell (WBC) Count 4.6 10x3/uL (4.8-10.8)
[2023-05-20 10:23] LABS: Anion Gap 15 mmol/L (10-20); BUN (Urea Nitrogen) 11 mg/dL (9.8-20.1); Calc. Creatinine Clearance 27 mL/min (70-130); Calcium 8.9 mg/dL (7.8-10.44); Carbon Dioxide 21 mmol/L (23-31); Chloride 104 mmol/L (98-107); Estimated GFR 47; Glucose 124 mg/dL (83-110); Potassium 4.3 mmol/L (3.5-5.1); Sodium 136 mmol/L (136-145)
[2023-05-20 13:56] VITALS: BP 136/66; TEMP 97.8
[2023-05-20] MEDS ORDERED: Ciprofloxacin 500 MG TAB PO SCH (17:45)
== END 2023-05-20 17:45 | disposition home or self-care (01) | DRG 812 ==
LOC: 2SW 12:04 → OBSVTOIN 05-19 11:57
PROVIDERS: ADMIT Student in an Organized Health Care Education/Training Program; ATTEND Internal Medicine
PROC: 30233N1 Transfusion of Nonautologous Red Blood Cells into Peripheral Vein, Percutaneous Approach (ICD-10-PCS; principal; 2023-05-19)
DX: D64.9 Anemia, unspecified (principal); N39.0 Urinary tract infection, site not specified; I10 Essential (primary) hypertension; E03.9 Hypothyroidism, unspecified; E16.2 Hypoglycemia, unspecified; E87.6 Hypokalemia; T68.XXXA Hypothermia, initial encounter; I73.9 Peripheral vascular disease, unspecified; E78.5 Hyperlipidemia, unspecified; Z79.899 Other long term (current) drug therapy; Z91.018 Allergy to other foods; Z79.82 Long term (current) use of aspirin; Z79.890 Hormone replacement therapy; Z86.73 Personal history of transient ischemic attack (TIA), and cerebral infarction without residual deficits; Z90.89 Acquired absence of other organs; Z98.890 Other specified postprocedural states
CPT/HCPCS: 36415; 36416; 36430; 51701; 51798; 80048; 80053; 81001; 82010; 82274; 82533; 82607; 83540; 83550; 83735; 84100; 85025; 86850; 86900; 86901; 94760; 96374; 96375; G0378; J0696; J1611; J1644; J3490; J7999; P9016